=== PATIENT | male | born 1935 | race Caucasian/White ===

== ENCOUNTER → 2017-07-03 | Outpatient (CLI) | payer MEDICARE, BC ==
--- NOTE | 2017-07-03 16:16 | CONS ---
Date/Time of Note Date/Time of Note DATE: 07/03/17 TIME: 16:02 Assessment/Plan Assessment/Plan Additional Assessment/Plan Assessment: This is an 82-year-old male with one-month history of right knee pain and swelling. His pain is localized to the lateral joint line. He likely sustained a lateral meniscus tear. At this time we will initiate conservative treatment. Plan: Right knee steroid injection Physical therapy for right lateral meniscus tear Ice right knee Follow-up in 3 months Consultation Date/Type/Reason Admit Date/Time Date of Consultation: Jul 03, 2017 Reason for Consultation Right knee pain Hx of Present Illness This is an 82-year-old male who presents with 1 month of right knee pain. He has multiple medical problems including high blood pressure, prostate enlargement, diabetes, stroke, hearing loss. The pain started a month ago without any inciting event. The pain has been persistent and has increased. The pain is on the lateral aspect of his knee. He has not sought any treatment so far. He states that he had swelling of the knee. The pain is 7 out of 10 and is described as stabbing and dull. He denies any numbness or tingling. His cardiac rehab exacerbates his right knee pain icing and resting makes the knee pain better. He can walk approximately 1 block. He uses the banister to climb the stairs and he does admit to limp. He uses a cane for longer walks if necessary. Patient denies fevers, chills, shortness of breath, chest pain, numbness, tingling, nausea, vomiting, diarrhea, constipation Past Medical History Hypertension, edema, prostate hypertrophy, frequent urination, diabetes mellitus , CVA, hearing loss, CLL. Past Surgical History Left knee surgery, stent cardiac, hernia repair Family History Significant Family History: no pertinent family hx Social History The patient is a former smoker, quit 50 years ago. Does not drink alcohol or use illicit drugs Exam/Review of Systems Vital Signs Vitals Weight: 164 pounds Height: 5' 9" Temperature: 97.7 Heart Rate: 72 Blood Pressure: 115/58 Respiratory Rate: 12 Exam General: Alert, oriented x3. No Acute Distress. Heart: Regular rate and rhythm. Lungs: No respiratory distress. No accessory muscle use. Musculoskeletal: Right Knee This is a well developed male who is alert, oriented times three and in no apparent distress. Skin is intact over the right knee as well as the lower extremity with no abrasions, lacerations, or ulcerations. Observation of the patient's gait reveals an antalgic gait. Frontal plane alignment is slight varus. There is pain on palpation of lateral joint line. The patient demonstrates grinding anteriorly with ROM. Range of motion: 5 extension to approximately 110 degrees of flexion. Collateral ligament testing reveals no instability with varus or valgus stress at 0 and 30 degrees of flexion. Negative Jeevan's and negative posterior drawer. Positive Jocy on the lateral joint line. Neurovascularly intact with 5/5 EHL/tibialis anterior/gastroc. Sensation intact to light touch in a sural, saphenous, deep peroneal, superficial peroneal, medial and lateral plantar nerve distribution. Palpable, symmetric dorsalis pedis and posterior tibial pulses in both lower extremities. Hip examination normal. Imaging Free Text/Dictation The patient received a standard set of films today that were personally reviewed. Imaging included a standing bilateral knee AP, PA flexion, merchant views and a dedicated lateral of the affected knee: There is slight varus alignment of the knee. There is minimal loss of joint space medial left>right knee compartment(s) . There is no osteophyte formation. There is no subchondral sclerosis. There are no subchondral cysts. Procedures Procedures Right knee steroid injection: The benefits and risks were reviewed with the patient regarding a right knee steroid injection. The understood these benefits and risks and wished to continue with the procedure. The right knee was prepped with alcohol and Betadine a direct lateral approach was used and 3mL 1% lidocaine was used to anesthetize the skin and subcutaneous tissue and capsule. This was followed by injecting 2 mL of 1% lidocaine, 2 mL 0.25% bupivacaine, and 40 mg of Kenalog. The injection flowed easily into the joint. Good hemostasis was obtained and the site was dressed with a Band-Aid. Patient tolerated the procedure well. Patient was instructed to rest and ice for the next 24-48 hours. SILVIA ARORA MD Jul 03, 2017 16:12
--- NOTE | 2017-07-04 14:00 | RADRPT ---
PROCEDURE: XR bilateral Knees. CLINICAL INDICATION: Bilateral knee pain. TECHNIQUE: 5 views of both knees are available for review. COMPARISON: None available FINDINGS: Right side: No evidence for fracture, subluxation, or dislocation. There is quadriceps insertional enthesopathy. Medial and lateral joint spaces are preserved. There is a moderate joint effusion pre sent. The moderate joint effusion can be seen with soft tissue injury such as meniscal tear and/or l igament injury. There are atherosclerotic calcifications. Left side: No evidence for fracture, subluxation, or dislocation. There is quadriceps insertional enthesopathy. Medial and lateral joint spaces are preserved. There are atherosclerotic calcification s. IMPRESSION: 1. Moderate right joint effusion which can be seen with synovitis and reflect soft tissue injury s uch as a meniscal tear and/or ligament injury. 2. No acute fracture or dislocation is seen. 2. Atherosclerosis. RPTAT: XX .Yoshi Hill MD, MD Date Time Electronically viewed and signed by .Yoshi Hill MD, on 07/04/2017 13:59 .T/
== END | disposition home or self-care (01) ==
LOC: HKI 14:46
PROVIDERS: ATTEND Orthopaedic Surgery Adult Reconstructive Orthopaedic Surgery
DX: M25.561 Pain in right knee (principal); M25.461 Effusion, right knee; Z87.891 Personal history of nicotine dependence; I10 Essential (primary) hypertension; E11.9 Type 2 diabetes mellitus without complications; N40.0 Benign prostatic hyperplasia without lower urinary tract symptoms; Z85.6 Personal history of leukemia; Z86.73 Personal history of transient ischemic attack (TIA), and cerebral infarction without residual deficits; Z98.61 Coronary angioplasty status
CPT/HCPCS: 20610; 73562; G0463

== ENCOUNTER → 2018-04-02 | Outpatient (CLI) | END | disposition home or self-care (01) ==